=== PATIENT | female | born 1950 | race Caucasian/White ===

== ENCOUNTER → 2016-08-24 | Outpatient (CLI) | payer OTHER ==
--- NOTE | 2016-08-24 17:49 | DX ---
Chest, Two Views 1738 hours History: Cough and headache. Comparison: None. Findings: Cardiac silhouette is within normal range. No pneumonia, congestive heart failure, pleura l effusion, or pneumothorax. Bilateral peribronchial thickening. Impression: 1. Bronchitis. 2. No definite pneumonia.
== END ==
LOC: GIMAGING 17:37
PROVIDERS: ATTEND Nurse Practitioner
DX: J40 Bronchitis, not specified as acute or chronic (principal); R51 Headache
CPT/HCPCS: 71020-PO

== ENCOUNTER → 2016-10-27 | Outpatient (CLI) | payer OTHER | LOC: BRMIMAGING 11:03 | PROVIDERS: ATTEND Family Medicine | DX: K80.20 Calculus of gallbladder without cholecystitis without obstruction (principal) | CPT/HCPCS: 76705-PO ==

== ENCOUNTER 2016-11-15 08:54 | Emergency (ER) | payer OTHER ==
[2016-11-15 09:05] VITALS: RESP 18
--- NOTE | 2016-11-15 09:48 | EDPHY ---
H & P Time Seen by Provider: 11/15/16 09:33 HPI/ROS: CHIEF COMPLAINT: Headache after head injury HISTORY OF PRESENT ILLNESS: Patient is a history of meningioma resection and hemorrhagic CVA. Last night she was trying to give her cat her diuretic medication at 1:00 a.m. when she lost her balance and fell backwards and hit her head on a door frame but did not lose consciousness. She presents with moderate to severe posterior headache and some nausea but no vomiting. No neck or back pain. No visual symptoms. Headache does not radiate. REVIEW OF SYSTEMS: Eye: no change in vision ENT: no sore throat Cardiac: no chest pain or syncope Pulmonary: no cough or SOB Abdomen: no vomiting, diarrhea, abdominal pain Musculoskeletal: no back pain Skin: no rash Neuro: HPI, chronic left leg numbness after stroke which is unchanged Constitutional: no fever : no urinary symptoms A comprehensive 10 point review of systems is otherwise negative aside from elements mentioned in the history of present illness. PAST MEDICAL HISTORY: Includes asthma, bilateral knee replacement, meningioma and hemorrhagic CVA as above. Ovarian cyst, Takasubo. Social history: Lives independently no alcohol. General Appearance: Alert and conversant, cooperative. Eyes: No scleral icterus. ENT, Mouth: Normal mucous membranes. Hematoma on the occiput. Respiratory: Normal respiratory effort, breath sounds equal, lungs are clear to auscultation. Cardiovascular: Regular rate and rhythm. Gastrointestinal: Abdomen is soft and non tender. Neurological: Alert and oriented x3. Normally conversant. Face symmetric, normal movement and sensation in all extremities except for decreased sensation to light touch in left lower extremity which is chronic. 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 Musculoskeletal: No cervical thoracic or lumbar spine tenderness. Psychiatric: Not agitated. Emergency Department course/MDM: CT head performed for head injury with severe headache and history of previous brain surgery, and age 66. Results discussed with the patient. Likely concussion, no evidence at this time for skull fracture epidural subdural or traumatic subarachnoid. Smoking Status: Former smoker Constitutional: Initial Vital Signs Heart Rate 58 L 11/15/16 08:55 Respiratory Rate 18 11/15/16 08:55 Blood Pressure 143/61 H 11/15/16 08:55 O2 Sat (%) 94 11/15/16 08:55 O2 Delivery Mode Room Air Allergies/Adverse Reactions: Sulfa (Sulfonamide Antibiotics) Allergy (Intermediate, Verified 11/15/16 09:05) Hives levofloxacin [From Levaquin] Allergy (Verified 11/15/16 09:05) bivalve mollusks Allergy (Uncoded 04/17/15 18:21) Home Medications: Medication Instructions Recorded Escitalopram Oxalate [Lexapro] 20 mg PO DAILY 05/01/16 Metoprolol Succinate 50 mg PO DAILY 05/01/16 amLODIPine BESYLATE [Norvasc 5 mg 5 mg PO DAILY 05/01/16 (*)] levETIRAcetam [Keppra 500 mg (*)] 500 mg PO BID 05/01/16 Medical Decision Making - Diagnostics Imaging: Negative head CT per Dr. Juárez Differential Diagnosis: Differential diagnosis considered for head injury including but not limited to concussion, skull fracture, intraparenchymal contusion, subarachnoid, subdural and epidural hematoma. Departure - Departure Disposition: Home, Routine, Self-Care Clinical Impression: Concussion Qualifiers: Encounter type: initial encounter Loss of consciousness presence/duration: without LOC Qualified Code(s): S06.0X0A - Concussion without loss of consciousness, initial encounter Condition: Good Instructions: Concussion (ED) Referrals: Sarika Rivera MD [Primary Care Provider] - As per Instructions
[2016-11-15 11:16] VITALS: BP 164/70; PULSE 48; TEMP 98.2; O2SAT 93
== END 2016-11-15 11:16 | disposition home or self-care (01) ==
DX: S06.0X0A Concussion without loss of consciousness, initial encounter (principal); J45.909 Unspecified asthma, uncomplicated; Z87.891 Personal history of nicotine dependence; W01.198A Fall on same level from slipping, tripping and stumbling with subsequent striking against other object, initial encounter; Y93.89 Activity, other specified

== ENCOUNTER 2017-05-11 03:37 | Emergency (ER) | payer OTHER ==
[2017-05-11 03:45] VITALS: TEMP 98.1
--- NOTE | 2017-05-11 03:50 | EDPHY ---
H & P Stated Complaint: Pt "rolled ankle" at [place] earlier today, awoke w/pain and swelling HPI/ROS: HPI CHIEF COMPLAINT: Left ankle pain HISTORY OF PRESENT ILLNESS: Patient very pleasant 67-year-old female she presents emergency room by private vehicle for caught morning for left ankle pain. Patient states she was working out in swimming to get some exercise for her left leg and she has been recovering from hemorrhagic stroke in her left leg does not work appropriate. She states she went swimming today and worked on her left leg strength in it. After that she went for a walk with her dog and had 2 separate ankle rolls. She rolled her ankle twice left ankle. She did not immediate have pain. She went to bed around midnight last night. And then started developing left lateral ankle pain. Worse with movement. Noted to be swollen on the left lateral ankle. 6/10 pain. The pain does not radiate anywhere stays in left lateral ankle. Past Medical History: AFib on Pradaxa, meningioma, hemorrhagic stroke, Bends Past Surgical History: Cholecystectomy, meningioma removal Social History: Denies daily use of drugs alcohol tobacco products. Family History: Noncontributory ROS REVIEW OF SYSTEMS: A comprehensive 10 point review of systems is otherwise negative aside from elements mentioned in the history of present illness. Exam Constitutional triage nursing summary reviewed, vital signs reviewed, awake/ alert. Eyes normal conjunctivae and sclera, EOMI, PERRLA. HENT normal inspection, atraumatic, moist mucus membranes, no epistaxis, neck supple/ no meningismus, no raccoon eyes. Respiratory clear to auscultation bilaterally, normal breath sounds, no respiratory distress, no wheezing. Cardiovascular rate normal, regular rhythm, no murmur, no edema, distal pulses normal. Gastrointestinal soft, non-tender, no rebound, no guarding, normal bowel sounds, no distension, no pulsatile mass. Genitourinary no CVA tenderness. Musculoskeletal left lower extremity: Tender palpation over the left lateral malleolus. There is swelling present lateral mal, lateral ankle. Midfoot is stable. Good DP. Warm extremity. Sensation intact. No medial ankle tenderness. Full range of motion however has pain to left lateral ankle. Good cap refill. Achilles intact, good pulses, neurovascularly intact. Of note there is no warmth. There is no redness. There is no excessive swelling. There is no compartment syndrome. Compartments are soft. Skin pink, warm, & dry, no rash, skin atraumatic. Neurologic awake, alert and oriented x 3, AAOx3, moves all 4 extremities equally, motor intact, sensory intact, CN II-XII intact, normal cerebellar, normal vision, normal speech. Psychiatric normal mood/affect. Heme/Lymph/Immune no lymphadenopathy. Differential Diagnosis: Includes but is not limited to in a particular order: Left ankle sprain, left ankle fracture, soft tissue injury, tendinitis Medical Decision Making: Plan for this patient x-ray left ankle. [place] for pain control. Ice. Elevation. Re-evaluation: ED x-ray left ankle: Negative for acute fracture. Soft tissue noted over the left lateral ankle. No fracture visualized. Image interpreted myself. Patient placed on crutches. Walking boot. Ice. Orthopedic follow-up. Pain medicine. Source: Patient - Personal History Current Tetanus/Diphtheria Vaccine: Yes Tetanus Vaccine Date: < 10 years - Medical/Surgical History Hx Asthma: Yes Hx Chronic Respiratory Disease: No Hx Diabetes: No Hx Cardiac Disease: Yes Hx Renal Disease: No Hx Cirrhosis: No Hx Alcoholism: No Hx HIV/AIDS: No Hx Splenectomy or Spleen Trauma: No Other PMH: PMHx: exercise induced asthma, brain meningioma, IBS, Takasubo's Syndrome, ovarian cyst. PSHx: BILAT TKA, MEDIAL LIGAMENT REPAIR, MENINGIOMA LEFT BRAIN and surgery with assoc hemorrhagic CVA. - Social History Smoking Status: Former smoker Constitutional: Initial Vital Signs Temperature (C) 36.7 C 05/11/17 03:38 Heart Rate 55 L 05/11/17 03:38 Respiratory Rate 16 05/11/17 03:38 Blood Pressure 155/67 H 05/11/17 03:38 O2 Sat (%) 98 05/11/17 03:38 O2 Delivery Mode Room Air Allergies/Adverse Reactions: Sulfa (Sulfonamide Antibiotics) Allergy (Intermediate, Verified 11/15/16 09:05) Hives levofloxacin [From Levaquin] Allergy (Verified 11/15/16 09:05) bivalve mollusks Allergy (Uncoded 04/17/15 18:21) Home Medications: Medication Instructions Recorded Metoprolol Succinate 50 mg PO DAILY 05/01/16 amLODIPine BESYLATE [Norvasc 5 mg 5 mg PO DAILY 09/10/16 (*)] levETIRAcetam [Keppra 500 mg (*)] 500 mg PO BID 05/01/16 Pradaxa 150 MG (*) 05/11/17 Medical Decision Making - Data Points Medications Given: Discontinued Medications Hydrocodone Bitart/Acetaminophen ([place] 5/325) 1 tab PO EDNOW ONE Stop: 05/11/17 03:57 Last Admin: 05/11/17 03:58 Dose: 1 tab Departure - Departure Disposition: Home, Routine, Self-Care Clinical Impression: Ankle sprain Qualifiers: Encounter type: initial encounter Involved ligament of ankle: other ligament Laterality: left Qualified Code(s): S93.492A - Sprain of other ligament of left ankle, initial encounter Condition: Good Instructions: Ankle Sprain (ED) Additional Instructions: 1. Keep her leg elevated. 2. Ice her ankle. 3. [place] for pain control. 4. Crutches for support 5. Splint for comfort. 6. Follow up with Orthopedics. Referrals: Patient,NotPresent [Primary Care Provider] - As per Instructions Armani Guerra MD [Medical Doctor] - As per Instructions
[2017-05-11] MEDS ORDERED: HYDROCODONE/APAP 5/325 TAB PO ONE (03:56)
[2017-05-11] MEDS ORDERED: HYDROCOD/APAP 5/325 PREPACK#6 BTL TAKEHOME ONE (03:56)
[2017-05-11 05:11] VITALS: BP 119/50; PULSE 52; RESP 18; O2SAT 96
== END 2017-05-11 05:10 | disposition home or self-care (01) ==
DX: S93.492A Sprain of other ligament of left ankle, initial encounter (principal); J45.909 Unspecified asthma, uncomplicated; Z87.891 Personal history of nicotine dependence; X58.XXXA Exposure to other specified factors, initial encounter; Y99.8 Other external cause status; Y93.01 Activity, walking, marching and hiking
CPT/HCPCS: 73610; 99283; L4386

== ENCOUNTER 2017-07-12 07:54 | Emergency (ER) | payer OTHER ==
--- NOTE | 2017-07-12 08:02 | EDPHY ---
HPI/HX/ROS/PE/MDM Narrative: CHIEF COMPLAINT: Chest pain HPI: The patient is an anticoagulated (Pradaxa) 67 y/o female with a history of atrial fibrillation, mitral valve prolapse, and takotsubo complaining of chest pain onset midnight, 8 hours ago. She was watching television when she began experiencing pain in her jaw, right shoulder, and back. She initially believed it was indigestion. The pain moved into her chest. She has associated shortness of breath and exhaustion. She denies worsening of pain with inspiration. She denies improvement when in different positions. She denies worsening of pain with exertion. She denies any other associated symptoms or factors that improve or worsen her symptoms. REVIEW OF SYSTEMS: Aside from elements discussed in the HPI, a comprehensive 10-point review of systems was reviewed and is negative. PMH: Atrial fibrillation, mitral valve prolapse, takotsubo SOCIAL HISTORY: Travelling to [place] in two weeks, lives in [place], retired PHYSICAL EXAM: General:Patient is alert, in no acute distress. ENT:Eyes are normal to inspection. ENT inspection normal. Neck: Normal inspection. Full range of motion. Respiratory:Slightly tachypneic, No respiratory distress. Breath sounds normal bilaterally. Cardiovascular: Regular rate and rhythm. Normal cap refill. Abdomen:The abdomen is nontender to palpation. There are no peritoneal signs. There are normal bowel sounds. Back: Normal to inspection. No tenderness to palpation. Skin: Normal color. No rash. Warm and dry. Extremities: Normal appearance. Full range of motion. Neuro: Oriented x3. Normal motor function. Normal sensory function. ED Course: EKG was ordered and interpreted by myself. EKG normal. Please see [facility] system for official reading. Study: X-ray of the chest Indication: Chest pain Results: X-ray of the chest was obtained. The results of the study are: negative for acute processes The study was read by the radiologist, Dr. Gao. I viewed the images myself on the PACS system. I reassessed the patient and found her condition unchanged. I informed her of the results of her workup which has largely been negative. She would like to return home. I agree to this course of action. Follow-up instructions and return precautions given. MDM: This patient presents with atypical chest pain in the setting of prior Takutsubo CM. We performed an extensive workup here in the ED including echo, troponin, CXR and other labs. These are negative, and patient's echo shows no sign of current Takutsubo or other acute issue. I offered patient admission to the hospital for cardiology consultation and further workup, but she declines. She promises to return for worsening symptoms, and understands that I am unable to rule out serious pathology without further testing. I considered PE but patient is compliant with Pradaxa and denies pain with inspiration, making this quite low probability. - Data Points Imaging Results: Imaging Impressions Chest X-Ray 07/12/17 08:14 Impression: COPD +/- airways disease. No pneumonia. Laboratory Results: Laboratory Results 07/12/17 08:18 07/12/17 08:18 07/12/17 07/12/17 08:18 08:18 WBC 7.27 10^3/uL 10^3/uL (3.80-9.50) RBC 4.93 10^6/uL 10^6/uL (4.18-5.33) Hgb 13.2 g/dL g/dL (12.6-16.3) Hct 40.9 % % (38.0-47.0) MCV 83.0 fL fL (81.5-99.8) MCH 26.8 pg L pg (27.9-34.1) MCHC 32.3 g/dL L g/dL (32.4-36.7) RDW 13.6 % % (11.5-15.2) Plt Count 267 10^3/uL 10^3/uL (150-400) MPV 9.7 fL fL (8.7-11.7) Neut % (Auto) 75.1 % H % (39.3-74.2) Lymph % (Auto) 10.7 % L % (15.0-45.0) [place] % (Auto) 12.0 % % (4.5-13.0) Eos % (Auto) 1.5 % % (0.6-7.6) Baso % (Auto) 0.4 % % (0.3-1.7) Nucleat RBC Rel Count 0.0 % % (0.0-0.2) Absolute Neuts (auto) 5.46 10^3/uL 10^3/uL (1.70-6.50) Absolute Lymphs (auto) 0.78 10^3/uL L 10^3/uL (1.00-3.00) Absolute Monos (auto) 0.87 10^3/uL H 10^3/uL (0.30-0.80) Absolute Eos (auto) 0.11 10^3/uL 10^3/uL (0.03-0.40) Absolute Basos (auto) 0.03 10^3/uL 10^3/uL (0.02-0.10) Absolute Nucleated RBC 0.00 10^3/uL 10^3/uL (0-0.01) Immature Gran % 0.3 % % (0.0-1.1) Immature Gran # 0.02 10^3/uL 10^3/uL (0.00-0.10) Sodium 140 mEq/L mEq/L (134-144) Potassium 4.2 mEq/L mEq/L (3.5-5.2) Chloride 106 mEq/L mEq/L (97-110) Carbon Dioxide 24 mEq/l mEq/l (22-31) Anion Gap 10 mEq/L mEq/L (8-16) BUN 14 mg/dL mg/dL (7-23) Creatinine 0.8 mg/dL mg/dL (0.6-1.0) Estimated GFR > 60 Glucose 112 mg/dL H mg/dL (70-100) Calcium 9.2 mg/dL mg/dL (8.5-10.4) Troponin I < 0.012 ng/mL ng/mL (0.000-0.034) NT-Pro-B Natriuret Pep 93 pg/mL pg/mL (0-125) Medications Given: Discontinued Medications Acetaminophen (Tylenol) 650 mg PO EDNOW ONE Stop: 07/12/17 11:55 Last Admin: 07/12/17 11:59 Dose: 650 mg General Time Seen by Provider: 07/12/17 07:58 Initial Vital Signs: Initial Vital Signs Temperature (C) 36.6 C 07/12/17 08:04 Heart Rate 80 07/12/17 08:04 Respiratory Rate 16 07/12/17 08:04 Blood Pressure 124/52 H 07/12/17 08:04 O2 Sat (%) 93 07/12/17 08:04 O2 Delivery Mode Room Air Allergies/Adverse Reactions: Sulfa (Sulfonamide Antibiotics) Allergy (Intermediate, Verified 11/15/16 09:05) Hives levofloxacin [From Levaquin] Allergy (Verified 11/15/16 09:05) bivalve mollusks Allergy (Uncoded 04/17/15 18:21) Home Medications: Medication Instructions Recorded Metoprolol Succinate 50 mg PO DAILY 05/01/16 amLODIPine BESYLATE [Norvasc 5 mg 5 mg PO DAILY 05/01/16 (*)] levETIRAcetam [Keppra 500 mg (*)] 500 mg PO BID 05/01/16 Pradaxa 150 MG (*) 05/11/17 Departure - Departure Disposition: Home, Routine, Self-Care Clinical Impression: Chest pain Qualifiers: Chest pain type: other chest pain Qualified Code(s): R07.89 - Other chest pain Condition: Good Instructions: Chest Pain (ED) Additional Instructions: 1. Follow-up with your primary care provider for unimproved symptoms. 2. Return to the ED for worsening of condition. Referrals: UNKNOWN,UNKNOWN [Other] - As per Instructions Geri Patino DO [Doctor of Osteopathy] - As per Instructions Report Scribed for: Marco A Reyna Report Scribed by: Judy Boone Date of Report: 07/12/17 Time of Report: 08:01 Physician Review and Approval Statement: Portions of this note were transcribed by an ED scribe. I personally performed the history, physical exam, and medical decision making; and confirm the accuracy of the information in the transcribed note.
--- NOTE | 2017-07-12 08:07 | CPEKG ---
Heart Rate: 80 RR Interval: 750 P-R Interval: 152 QRSD Interval: 72 QT Interval: 352 QTC Interval: 406 P [place]: -17 QRS [place]: 17 T Wave [place]: 34 EKG Severity - BORDERLINE ECG - EKG Impression: SINUS RHYTHM EKG Impression: BORDERLINE R WAVE PROGRESSION, ANTERIOR LEADS Electronically Signed By: Houston Munoz 13-Jul-2017 07:01:57
[2017-07-12 08:38] LABS: % IMMATURE GRANULYOCYTES 0.3 % (0.0-1.1); ABSOLUTE IMMATURE GRANULOCYTES 0.02 10^3/uL (0.00-0.10); ADD DIFF? NO; ADD MORPH? NO; ADD SCAN? NO; ATYPICAL LYMPHOCYTE FLAG 0 (0-99); FRAGMENT RBC FLAG 0 (0-99); HEMATOCRIT 40.9 % (38.0-47.0); HEMOGLOBIN 13.2 g/dL (12.6-16.3); LEFT SHIFT FLG 0 (0-99); LIPEMIA HEMOLYSIS FLAG 80 (0-99); MEAN CELL HEMOGLOBIN 26.8 pg (27.9-34.1); MEAN CELL HEMOGLOBIN CONCENTR. 32.3 g/dL (32.4-36.7); MEAN PLATELET VOLUME 9.7 fL (8.7-11.7); PLATELET CLUMPS FLAG 10 (0-99); PLATELET COUNT 267 10^3/uL (150-400); RED BLOOD CELL COUNT 4.93 10^6/uL (4.18-5.33); RED CELL DISTRIBUTION WIDTH 13.6 % (11.5-15.2)
[2017-07-12 09:00] LABS: TROPONIN I < 0.012 ng/mL (0.000-0.034)
[2017-07-12 09:13] LABS: ANION GAP 10 mEq/L (8-16); CALCIUM 9.2 mg/dL (8.5-10.4); CARBON DIOXIDE 24 mEq/l (22-31); CHLORIDE 106 mEq/L (97-110); CREATININE 0.8 mg/dL (0.6-1.0); GLOMERULAR FILTRATION RATE > 60; GLUCOSE 112 mg/dL (70-100); POTASSIUM 4.2 mEq/L (3.5-5.2); SODIUM 140 mEq/L (134-144)
[2017-07-12] MEDS ORDERED: ACETAMINOPHEN 325 MG TAB PO ONE (11:54)
[2017-07-12 12:15] VITALS: BP 135/85; PULSE 74; RESP 18; TEMP 98.4; O2SAT 95
--- NOTE | 2017-07-12 12:28 | ECHO ---
[email or web address] [address] [address] [address]: [phone] Fax: Transthoracic Echocardiogram Name: SVETLANA YADAV MR#: [id number] Study Date: 07/12/2017 Study Time: 09:44 AM Date of : 1950 Age: 67 year(s) Height: 160 cm (63 in.) Weight: 97.98 kg (216 lb.) BSA: 2 m2 Gender: Female Examination: Echo Indication: Chest Pain, Hx of Takotsubo Cardiomyopathy Image Quality: Contrast: Requested by: Marco A Reyna BP: 141 mmHg/68 mmHg Heart Rate: Rhythm: Indication: Chest Pain, Hx of Takotsubo Cardiomyopathy Procedure Staff Rural Mail Contractor: Meet Blunt Reading Physician: Tristan Corrigan Requesting Provider: Conclusions: Normal size left ventricle. Normal global systolic LV function. EF is 64 %. Diastolic dysfunction is present. . Trivial to mild mitral regurgitation. Trivial to mild aortic valve regurgitation. Trivial to mild tricuspid valve regurgitation. There is no evidence of Takotsubo Cardiomyopathy.. Measurements: Chambers Valvular Assessment AV/MV Valvular Assessment TV/PV Normal Normal Normal Name Value Range Name Value Range Name Value Range Ao Marti (MM): 2.3 cm (2.2 cm-3.7 AV Vmax: 1.52 m/s (1 m/s-1.7 TR Vmax: 2.55 mm/s ( - ) cm) m/s) TR PGmax: 26 mmHg ( - ) IVSd (2D): 0.9 cm (0.6 cm-1.1 AV maxP mmHg ( - ) syst. PAP: 31 mmHg ( - ) cm) LVOT Vmax: 1.04 m/s (0.7 m/s-1.1 PV Vmax: 1.10 m/s (0.6 m/s-0.9 LVDd (2D): 4.1 cm (3.9 cm-5.3 m/s) m/s) cm) AR (PHT): 562 ms ( - ) PV PGmax: 5 mmHg ( - ) LVDs (2D): 2.7 cm (2.1 cm-4 MV E Vmax: 0.78 m/s ( - ) cm) MV A Vmax: 1.14 m/s ( - ) LVPWd (2D): 1.0 cm ( - ) MV E/A: 0.68 ( - ) LVEF (2D): 64 (>=54 %) Continued Measurements: Chambers Valvular Assessment AV/MV Valvular Assessment TV/PV Name Value Name Value Name Value LADs Lon.6 cm MV E/E' Septal: 20.00 CVP (est.): 5 mmHg Patient: SVETLANA YADAV Study Date: 07/12/2017 Page 1 of 2 09:44 AM LA Area: 17.5 cm2 MV E/E' Lateral: 12.10 LA Volume: 53 ml AR Vmax: 2.55 cm/s LA Volume Index: 26.5 ml/m2 Findings: Left Ventricle: Normal size left ventricle. No LV hypertrophy. Normal global systolic LV function. EF is 64 %. No regional wall motion abnormality. Diastolic dysfunction is present. . Right Ventricle: Normal size right ventricle. Normal RV function. Left Atrium: The left atrium is normal in size. Right Atrium: The right atrium is normal in size. Mitral Valve: The mitral valve is normal in appearance. Trivial to mild mitral regurgitation. Aortic Valve: The aortic valve is tri-leaflet. The aortic valve is normal in appearance and function. Trivial to mild aortic valve regurgitation. Tricuspid Valve: The tricuspid valve is normal in appearance and function. Trivial to mild tricuspid valve regurgitation. The pulmonary artery pressure is normal. Pulmonic Valve: Pulmonary valve not well visualized. Aorta: The aorta is normal. Pericardium: No pericardial effusion. There is pericardial fat. Exam Comments: There is no evidence of Takotsubo Cardiomyopathy.. (No Signature Object) Patient: SVETLANA YADAV Study Date: 07/12/2017 Page 2 of 2 09:44 AM [id number]
== END 2017-07-12 12:44 | disposition home or self-care (01) ==
DX: R07.89 Other chest pain (principal)

== ENCOUNTER 2018-04-22 18:43 | Emergency (ER) | payer OTHER ==
[2018-04-22] MEDS ORDERED: NS 1,000 ML IV ONE (19:11)
--- NOTE | 2018-04-22 19:11 | CPEKG ---
Test Reason : OPEN Blood Pressure : / mmHG Vent. Rate : 052 BPM Atrial Rate : 052 BPM P-R Int : 183 ms QRS Dur : 076 ms QT Int : 414 ms P-R-T Axes : 026 007 032 degrees QTc Int : 385 ms Sinus rhythm jacque Low voltage, precordial leads Confirmed by Brian Meza ([id number]) on 04/22/2018 7:10:53 PM Referred By: Confirmed By:Brian Meza
--- NOTE | 2018-04-22 19:19 | EDPHY ---
H & P Stated Complaint: LIGHTHEADED, DIZZY Time Seen by Provider: 04/22/18 18:51 HPI/ROS: CHIEF COMPLAINT: Lightheadedness HISTORY OF PRESENT ILLNESS: The patient is a 68-year-old female who presents to the emergency department complaining of lightheadedness. She states that she has felt this way for several months but that it is worsened today. She has a history of atrial fibrillation paroxysmally and is on Pradaxa. She also has history of Takotsubo's cardiomyopathy. She also was admitted recently for symptomatic bradycardia. At that time her metoprolol was discontinued in her heart rate improved she felt better. It was restarted gradually however by her technical recruiter because of the Takotsubo's. Her technical recruiter is Dr. Chanel Frost. She is wearing a equipment monitor phototypesetting and they are trying to assess her for sick sinus syndrome and possibly pacemaker. She was back up to 25 mg of metoprolol daily but held that on her own yesterday. She also has a history of meningioma and intracranial hemorrhage and brain surgery with resultant seizures. She is on Keppra. She has had recent brain imaging and tilt-table studies that did not seem to reveal a neurologic cause for her chronic lightheadedness. No recent fevers or illness. She is not fainted. No chest pain. Severity: Moderate Modifying factors: Chronic, worse with standing REVIEW OF SYSTEMS: Constitutional: See HPI denies: chills, fever, recent illness, recent injury EENTM: denies: blurred vision, double vision, nose congestion Respiratory: denies: cough, shortness of breath Cardiac: See HPI denies: chest pain, irregular heart rate, palpitations Gastrointestinal/Abdominal: denies: abdominal pain, diarrhea, nausea, vomiting, blood streaked stools Genitourinary: denies: dysuria, frequency, hematuria, pain Musculoskeletal: denies: joint pain, muscle pain Skin: denies: lesions, rash, jaundice, bruising Neurological: denies: headache, numbness, paresthesia, tingling, dizziness, weakness Hematologic/Lymphatic: denies: blood clots, easy bleeding, easy bruising Immunologic/allergic: denies: HIV/AIDS, transplant 10 systems reviewed and negative except as noted EXAM: GENERAL: Well-appearing, well-nourished and in no acute distress. HEAD: Atraumatic, normocephalic. EYES: Pupils equal round and reactive to light, extraocular movements intact, sclera anicteric, conjunctiva are normal. ENT: TMs normal, nares patent, oropharynx clear without exudates. Moist mucous membranes. NECK: Normal range of motion, supple without lymphadenopathy or JVD. LUNGS: Breath sounds clear to auscultation bilaterally and equal. No wheezes rales or rhonchi. HEART: Bradycardic, Regular rate and rhythm without murmurs, rubs or gallops. ABDOMEN: Soft, nontender, normoactive bowel sounds. No guarding, no rebound. No masses appreciated. BACK: No CVA tenderness, no spinal tenderness, step-offs or deformities EXTREMITIES: Normal range of motion, no pitting or edema. No clubbing or cyanosis. NEUROLOGICAL: Cranial nerves II through XII grossly intact. Normal speech, normal gait. 5/5 strength, normal movement in all extremities, normal sensation , normal reflexes PSYCH: Normal mood, normal affect. SKIN: Warm, dry, normal turgor, no visible rashes or lesions. Source: Patient Exam Limitations: No limitations - Personal History Current Tetanus/Diphtheria Vaccine: Yes Current Tetanus Diphtheria and Acellular Pertussis (TDAP): Yes Tetanus Vaccine Date: < 10 years - Medical/Surgical History Hx Asthma: Yes Hx Chronic Respiratory Disease: No Hx Diabetes: No Hx Cardiac Disease: Yes Hx Renal Disease: No Hx Cirrhosis: No Hx Alcoholism: No Hx HIV/AIDS: No Hx Splenectomy or Spleen Trauma: No Other PMH: PMHx: exercise induced asthma, brain meningioma, IBS, Takasubo's Syndrome, ovarian cyst. PSHx: BILAT TKA, MEDIAL LIGAMENT REPAIR, MENINGIOMA LEFT BRAIN and surgery with assoc hemorrhagic CVA. - Family History Significant Family History: No pertinent family hx - Social History Smoking Status: Former smoker Alcohol Use: Sober Drug Use: None Constitutional: Initial Vital Signs Temperature (C) 36.6 C 04/22/18 18:45 Heart Rate 59 L 04/22/18 18:45 Respiratory Rate 16 04/22/18 18:45 Blood Pressure 148/84 H 04/22/18 18:45 O2 Sat (%) 93 04/22/18 18:45 O2 Delivery Mode Room Air Allergies/Adverse Reactions: Sulfa (Sulfonamide Antibiotics) Allergy (Intermediate, Verified 04/22/18 20:13) Hives levofloxacin [From Levaquin] Allergy (Verified 04/22/18 20:13) bivalve mollusks Allergy (Uncoded 04/22/18 20:13) Home Medications: Medication Instructions Recorded amLODIPine BESYLATE [Norvasc 5 mg 5 mg PO HS 05/01/16 (*)] levETIRAcetam [Keppra 500 mg (*)] 500 mg PO HS 05/01/16 Dabigatran Etexilate Mesyl 150 mg PO BID 05/11/17 [Pradaxa 150 MG (*)] Alendronate Sodium [Fosamax 70 MG 70 mg PO TRINIDAD@0700 03/30/18 (*)] Citalopram [CeleXA 20 MG] 20 mg PO HS 03/30/18 Medical Decision Making - Diagnostics EKG Interpretation: An EKG obtained and was read and documented in trace view. Please see trace view for full reading and report. Sinus bradycardia, no acute ischemic changes Imaging Results: Imaging Impressions Chest X-Ray 04/22/18 19:12 Impression: No evidence of acute cardiopulmonary abnormality. Imaging: Discussed imaging studies w/ call center dispatcher Radiologist ED Course/Re-evaluation: 8:10 p.m. We discussed the patient's lab and imaging results which are reassuring. While lying here in bed her heart rate has mostly been in the 50s occasionally drops down to high 40s. I recommended admission for lightheadedness and bradycardia. Her blood pressure has been stable. Patient declines and states that she has been dealing with this for several months and her technical recruiter is aware that she is wearing a monitor. She states that she no longer feels lightheaded. She understands the risks involved as. She has capacity to make medical decisions. We discussed symptoms to watch for and indications for returning. Differential Diagnosis: Partial list of the Differential diagnosis considered include but were not limited to; bradycardia, lightheadedness and although unlikely based on the history and physical exam, I also considered dehydration, electrolyte abnormality, acute coronary disease. I discussed these differential diagnoses and the plan with the patient as well as the usual and expected course. The patient understands that the diagnosis is provisional and that in medicine we are not always correct and that further workup is often warranted. Usual and customary warnings were given. All of the patient's questions were answered. The patient was instructed to return to the emergency department should the symptoms at all worsen or return, otherwise to followup with the physician as we discussed. - Data Points Laboratory Results: Laboratory Results 04/22/18 19:19 04/22/18 19:19 04/22/1818 04/22/18 19:22 19:19 19:19 WBC 8.17 10^3/uL 10^3/uL (3.80-9.50) RBC 4.98 10^6/uL 10^6/uL (4.18-5.33) Hgb 14.0 g/dL g/dL (12.6-16.3) Hct 42.5 % % (38.0-47.0) MCV 85.3 fL fL (81.5-99.8) MCH 28.1 pg pg (27.9-34.1) MCHC 32.9 g/dL g/dL (32.4-36.7) RDW 13.2 % % (11.5-15.2) Plt Count 280 10^3/uL 10^3/uL (150-400) MPV 9.8 fL fL (8.7-11.7) Neut % (Auto) 59.9 % % (39.3-74.2) Lymph % (Auto) 26.6 % % (15.0-45.0) [place] % (Auto) 11.0 % % (4.5-13.0) Eos % (Auto) 1.7 % % (0.6-7.6) Baso % (Auto) 0.4 % % (0.3-1.7) Nucleat RBC Rel Count 0.0 % % (0.0-0.2) Absolute Neuts (auto) 4.90 10^3/uL 10^3/uL (1.70-6.50) Absolute Lymphs (auto) 2.17 10^3/uL 10^3/uL (1.00-3.00) Absolute Monos (auto) 0.90 10^3/uL H 10^3/uL (0.30-0.80) Absolute Eos (auto) 0.14 10^3/uL 10^3/uL (0.03-0.40) Absolute Basos (auto) 0.03 10^3/uL 10^3/uL (0.02-0.10) Absolute Nucleated RBC 0.00 10^3/uL 10^3/uL (0-0.01) Immature Gran % 0.4 % % (0.0-1.1) Immature Gran # 0.03 10^3/uL 10^3/uL (0.00-0.10) Sodium 140 mEq/L mEq/L (135-145) Potassium 4.4 mEq/L mEq/L (3.3-5.0) Chloride 107 mEq/L mEq/L (97-110) Carbon Dioxide 25 mEq/l mEq/l (22-31) Anion Gap 8 mEq/L mEq/L (8-16) BUN 19 mg/dL mg/dL (7-23) Creatinine 0.6 mg/dL mg/dL (0.6-1.0) Estimated GFR > 60 Glucose 96 mg/dL mg/dL (70-100) Calcium 8.9 mg/dL mg/dL (8.5-10.4) POC Troponin I 0.01 ng/mL ng/mL (0.00-0.08) TSH 1.110 uIU/mL uIU/mL (0.465-4.680) Medications Given: Discontinued Medications Sodium Chloride (Ns) 1,000 mls @ 0 mls/hr IV EDNOW ONE; Wide Open PRN Reason: Protocol Stop: 04/22/18 19:12 Last Admin: 04/22/18 19:29 Dose: 1,000 mls Point of Care Test Results: Chemistry 04/22/18 19:22 POC Troponin I 0.01 ng/mL ng/mL (0.00-0.08) Departure - Departure Disposition: Home, Routine, Self-Care Clinical Impression: Bradycardia, Lightheaded Condition: Fair Instructions: Bradycardia (ED), Lightheadedness (ED) Referrals: HODA DILLARD MD [Primary Care Provider] - As per Instructions Chanel Spears [Other] - 2-3 days, call for appt.
[2018-04-22 19:38] LABS: PLATELET COUNT 280 10^3/uL (150-400)
[2018-04-22 20:24] VITALS: BP 126/75
== END 2018-04-22 20:20 | disposition home or self-care (01) ==
DX: R00.1 Bradycardia, unspecified (principal); I48.91 Unspecified atrial fibrillation; Z79.01 Long term (current) use of anticoagulants; I51.81 Takotsubo syndrome; Z96.653 Presence of artificial knee joint, bilateral; Z86.011 Personal history of benign neoplasm of the brain; Z87.891 Personal history of nicotine dependence
CPT/HCPCS: 84484-PO

== ENCOUNTER 2018-05-05 22:41 | Emergency (ER) | payer OTHER ==
[2018-05-05] MEDS ORDERED: NS 1,000 ML IV ONE (23:01)
--- NOTE | 2018-05-05 23:01 | EDPHY ---
H & P Stated Complaint: diffuse abdomen and bilaterl flank pain intermittent x 1 week Time Seen by Provider: 05/05/18 23:00 HPI/ROS: HPI CHIEF COMPLAINT: Abdominal pain HISTORY OF PRESENT ILLNESS: This is a very pleasant 68-year-old female, she presents emergency room with 1 week of back pain and abdominal pain. Also reports she feels very constipated. Pain is located upper lumbar lower thoracic and wraps around around her back to around her belly. Been going on for week. No vomiting. No diarrhea. Does report constipation. No fever no chest pain or shortness of breath. Patient states she had a bunch blood work done by her primary care doctor and had an abnormal urinalysis. Stool maybe she has a kidney stone. Past Medical History: Significant medical history of AFib on Pradaxa, hemorrhagic CVA Past Surgical History: History of cholecystectomy, meningioma removal Social History: Denies drugs alcohol tobacco. Family History: Noncontributory ROS REVIEW OF SYSTEMS: 10 Systems were reviewed and negative with the exception of the elements mentioned in the history of present illness. Exam Constitutional triage nursing summary reviewed, vital signs reviewed, awake/ alert. Eyes normal conjunctivae and sclera, EOMI, PERRLA. HENT normal inspection, atraumatic, moist mucus membranes, no epistaxis, neck supple/ no meningismus, no raccoon eyes. Respiratory clear to auscultation bilaterally, normal breath sounds, no respiratory distress, no wheezing. Cardiovascular rate normal, regular rhythm, no murmur, no edema, distal pulses normal. Gastrointestinal mild fullness, no rebound, no guarding, normal bowel sounds, no distension, no pulsatile mass. Genitourinary no CVA tenderness. Musculoskeletal no midline vertebral tenderness, full range of motion, no calf swelling, no tenderness of extremities, no meningismus, good pulses, neurovascularly intact. Skin pink, warm, & dry, no rash, skin atraumatic. Neurologic awake, alert and oriented x 3, AAOx3, moves all 4 extremities equally, motor intact, sensory intact, CN II-XII intact, normal cerebellar, normal vision, normal speech. Psychiatric normal mood/affect. Heme/Lymph/Immune no lymphadenopathy. Differential diagnosis includes but is not limited to and in no particular order : Bowel obstruction, appendicitis, gallbladder disease, diverticulitis, colitis , enteritis, perforated viscus, gastritis, GERD, esophagitis, urinary tract infection, pyelonephritis, kidney stones, thoracic back pain, compression fracture Medical Decision Making: Plan for this patient CT scan abdomen pelvis with IV contrast for abdominal pain abdominal discomfort, additionally thoracic spine x- ray, additionally blood work, urinalysis, re-evaluate. Re-evaluation: EKG interpretation by me on record in [employer] system. Impression time of EKG 2320, sinus rhythm rate of [address] elevation or ST depression. No significant T-wave abnormalities. CT scan abdomen pelvis with IV contrast: Negative for acute inflammatory process visualized. No evidence of thoracic or lumbar back fractures. 0115: Patient review this time resting comfortably no acute distress. CT scan reviewed shows no evidence acute inflammatory process. Nothing explained back pain wraps around to her abdomen. Troponin negative. EKG nonischemic. The patient's is resting comfortably. She has pain musculoskeletal when she moves. Plan will be for her to follow up with primary care doctor. Limited supply of [place] for pain. Her pain is worse when she moves. Denies chest pain or shortness of breath. The pain is located mid thoracic back. Return precautions discussed. Source: Patient - Personal History Tetanus Vaccine Date: < 10 years - Medical/Surgical History Hx Asthma: Yes Hx Chronic Respiratory Disease: No Hx Diabetes: No Hx Cardiac Disease: Yes Hx Renal Disease: No Hx Cirrhosis: No Hx Alcoholism: No Hx HIV/AIDS: No Hx Splenectomy or Spleen Trauma: No Other PMH: PMHx: exercise induced asthma, brain meningioma, IBS, Takasubo's Syndrome, ovarian cyst. PSHx: BILAT TKA, MEDIAL LIGAMENT REPAIR, MENINGIOMA LEFT BRAIN and surgery with assoc hemorrhagic CVA, cholecystectomy - Social History Smoking Status: Former smoker Constitutional: Initial Vital Signs Temperature (C) 36.6 C 05/05/18 22:45 Heart Rate 70 05/05/18 22:45 Respiratory Rate 18 05/05/18 22:45 Blood Pressure 156/63 H 05/05/18 22:45 O2 Sat (%) 98 05/05/18 22:45 O2 Delivery Mode Room Air Allergies/Adverse Reactions: Sulfa (Sulfonamide Antibiotics) Allergy (Intermediate, Verified 04/22/18 20:13) Hives levofloxacin [From Levaquin] Allergy (Verified 04/22/18 20:13) bivalve mollusks Allergy (Uncoded 04/22/18 20:13) Home Medications: Medication Instructions Recorded amLODIPine BESYLATE [Norvasc 5 mg 5 mg PO HS 05/01/16 (*)] levETIRAcetam [Keppra 500 mg (*)] 500 mg PO HS 05/01/16 Dabigatran Etexilate Mesyl 150 mg PO BID 05/11/17 [Pradaxa 150 MG (*)] Alendronate Sodium [Fosamax 70 MG 70 mg PO TRINIDAD@0700 03/30/18 (*)] Citalopram [CeleXA 20 MG] 20 mg PO HS 03/30/18 Hydrocodone/APAP 5/325 [[place] 1 - 2 tab PO Q4H PRN #10 tab 05/06/18 5/325] Medical Decision Making - Diagnostics Imaging Results: Imaging Impressions Abdomen CT 05/05/18 23:06 Impression: 1. Sigmoid diverticulosis without diverticulitis. 2. Periumbilical abdominal wall hernia defect. 3. Degenerative spine especially at L4-L5 without lumbar compression fractures. 4. Atherosclerotic aorta without aneurysm. 5. Constipation. Findings and recommendations discussed with Emergency Department physician, Juan Carlos Inman MD at 0:34 hour, 05/06/2018. Final report concurs with initial preliminary interpretation. Thoracic Spine X-Ray 05/05/18 23:22 Impression: 1. No definite thoracic compression fractures. 2. T8-T9 mild degenerative disk disease. 3. L4-L5 grade 1 anterolisthesis. - Data Points Laboratory Results: Laboratory Results 05/05/18 23:10 05/05/18 23:10 05/06/18 05/05/18 05/05/18 00:55 23:17 23:10 WBC RBC Hgb Hct MCV MCH MCHC RDW Plt Count MPV Neut % (Auto) Lymph % (Auto) [place] % (Auto) Eos % (Auto) Baso % (Auto) Nucleat RBC Rel Count Absolute Neuts (auto) Absolute Lymphs (auto) Absolute Monos (auto) Absolute Eos (auto) Absolute Basos (auto) Absolute Nucleated RBC Immature Gran % Immature Gran # PT INR APTT VBG Lactic Acid Sodium 140 mEq/L mEq/L (135-145) Potassium 4.0 mEq/L mEq/L (3.3-5.0) Chloride 104 mEq/L mEq/L (97-110) Carbon Dioxide 28 mEq/l mEq/l (22-31) Anion Gap 8 mEq/L mEq/L (8-16) BUN 22 mg/dL mg/dL (7-23) Creatinine 0.8 mg/dL mg/dL (0.6-1.0) Estimated GFR > 60 Glucose 119 mg/dL H mg/dL (70-100) Calcium 9.5 mg/dL mg/dL (8.5-10.4) Total Bilirubin 0.3 mg/dL mg/dL (0.1-1.4) Conjugated Bilirubin 0.1 mg/dL mg/dL (0.0-0.5) Unconjugated Bilirubin 0.2 mg/dL mg/dL (0.0-1.1) AST 23 IU/L IU/L (14-46) ALT 29 IU/L IU/L (9-52) Alkaline Phosphatase 96 IU/L IU/L (38-126) POC Troponin I 0.00 ng/mL ng/mL (0.00-0.08) Total Protein 6.9 g/dL g/dL (6.3-8.2) Albumin 3.8 g/dL g/dL (3.5-5.0) Lipase 87 IU/L IU/L (23-300) Urine Color YELLOW Urine Appearance CLEAR Urine pH 5.0 (5.0-7.5) Ur Specific [place] > 1.035 H (1.002-1.030) Urine Protein NEGATIVE (NEGATIVE) Urine Ketones NEGATIVE (NEGATIVE) Urine Blood NEGATIVE (NEGATIVE) Urine Nitrate NEGATIVE (NEGATIVE) Urine Bilirubin NEGATIVE (NEGATIVE) Urine Urobilinogen NEGATIVE EU EU (0.2-1.0) Ur Leukocyte Esterase NEGATIVE (NEGATIVE) Urine Glucose NEGATIVE (NEGATIVE) 05/05/18 05/05/18 05/05/18 23:10 23:10 23:10 WBC 8.52 10^3/uL 10^3/uL (3.80-9.50) RBC 5.13 10^6/uL 10^6/uL (4.18-5.33) Hgb 14.6 g/dL g/dL (12.6-16.3) Hct 44.2 % % (38.0-47.0) MCV 86.2 fL fL (81.5-99.8) MCH 28.5 pg pg (27.9-34.1) MCHC 33.0 g/dL g/dL (32.4-36.7) RDW 13.2 % % (11.5-15.2) Plt Count 283 10^3/uL 10^3/uL (150-400) MPV 9.7 fL fL (8.7-11.7) Neut % (Auto) 54.4 % % (39.3-74.2) Lymph % (Auto) 32.7 % % (15.0-45.0) [place] % (Auto) 10.6 % % (4.5-13.0) Eos % (Auto) 1.6 % % (0.6-7.6) Baso % (Auto) 0.5 % % (0.3-1.7) Nucleat RBC Rel Count 0.0 % % (0.0-0.2) Absolute Neuts (auto) 4.63 10^3/uL 10^3/uL (1.70-6.50) Absolute Lymphs (auto) 2.79 10^3/uL 10^3/uL (1.00-3.00) Absolute Monos (auto) 0.90 10^3/uL H 10^3/uL (0.30-0.80) Absolute Eos (auto) 0.14 10^3/uL 10^3/uL (0.03-0.40) Absolute Basos (auto) 0.04 10^3/uL 10^3/uL (0.02-0.10) Absolute Nucleated RBC 0.00 10^3/uL 10^3/uL (0-0.01) Immature Gran % 0.2 % % (0.0-1.1) Immature Gran # 0.02 10^3/uL 10^3/uL (0.00-0.10) PT 13.5 SEC SEC (12.0-15.0) INR 1.01 (0.83-1.16) APTT 46.8 SEC H SEC (23.0-38.0) VBG Lactic Acid 1.8 mmol/L mmol/L (0.7-2.1) Sodium Potassium Chloride Carbon Dioxide Anion Gap BUN Creatinine Estimated GFR Glucose Calcium Total Bilirubin Conjugated Bilirubin Unconjugated Bilirubin AST ALT Alkaline Phosphatase POC Troponin I Total Protein Albumin Lipase Urine Color Urine Appearance Urine pH Ur Specific [place] Urine Protein Urine Ketones Urine Blood Urine Nitrate Urine Bilirubin Urine Urobilinogen Ur Leukocyte Esterase Urine Glucose Medications Given: Discontinued Medications Sodium Chloride (Ns) 1,000 mls @ 0 mls/hr IV EDNOW ONE; Wide Open PRN Reason: Protocol Stop: 05/05/18 23:02 Last Admin: 05/05/18 23:14 Dose: 1,000 mls Point of Care Test Results: Chemistry 05/05/18 23:17 POC Troponin I 0.00 ng/mL ng/mL (0.00-0.08) Departure - Departure Disposition: Home, Routine, Self-Care Clinical Impression: Abdominal pain Qualifiers: Abdominal location: unspecified location Qualified Code(s): R10.9 - Unspecified abdominal pain Back pain Qualifiers: Back pain location: low back pain Chronicity: acute Back pain laterality: unspecified Sciatica presence: without sciatica Qualified Code(s): M54.5 - Low back pain Condition: Good Instructions: Back Pain (ED) Additional Instructions: 1. Follow up with her primary care doctor 2. Return emergency room if there is worsening symptoms questions or concerns. Referrals: HODA DILLARD MD [Primary Care Provider] - As per Instructions Prescriptions: Hydrocodone/APAP 5/325 [[place] 5/325] 1 - 2 tab PO Q4H PRN #10 tab PRN Reason: Pain, Moderate
[2018-05-05 23:21] LABS: PLATELET COUNT 283 10^3/uL (150-400)
[2018-05-05 23:40] LABS: INR 1.01 (0.83-1.16); PROTIME(PATIENT) 13.5 SEC (12.0-15.0)
[2018-05-05] MEDS ORDERED: IOPAMIDOL (ISOVUE-300) 100 ML BTL ONE (23:47)
[2018-05-06 01:03] VITALS: BP 145/60
--- NOTE | 2018-05-08 05:47 | CPEKG ---
Test Reason : OPEN Blood Pressure : / mmHG Vent. Rate : 056 BPM Atrial Rate : 056 BPM P-R Int : 180 ms QRS Dur : 079 ms QT Int : 419 ms P-R-T Axes : 031 014 030 degrees QTc Int : 405 ms Sinus rhythm Low voltage, precordial leads Confirmed by Juan Carlos Inman ([id number]) on 05/08/2018 5:47:02 AM Referred By: Confirmed By:Juan Carlos Inman
== END 2018-05-06 01:28 | disposition home or self-care (01) ==
DX: K57.30 Diverticulosis of large intestine without perforation or abscess without bleeding (principal); M51.36 Other intervertebral disc degeneration, lumbar region; E86.9 Volume depletion, unspecified; K42.9 Umbilical hernia without obstruction or gangrene; I70.0 Atherosclerosis of aorta; K59.00 Constipation, unspecified
CPT/HCPCS: 72070; 74177; 93005; 96360; 99285; Q9967; 84484-PO

== ENCOUNTER → 2018-05-05 | Outpatient (CLI) | payer OTHER | LOC: FIMAGING 11:47 | PROVIDERS: ATTEND Family Medicine | DX: R10.13 Epigastric pain (principal); K83.9 Disease of biliary tract, unspecified; Z90.49 Acquired absence of other specified parts of digestive tract ==